=== PATIENT | female | born 2000 | race Caucasian/White ===

== ENCOUNTER 2023-05-25 14:06 | Outpatient (CLI) | payer MEDICAID, SELFPAY | END 2023-05-25 23:59 | LOC: RT 14:08 | PROVIDERS: Visit Provider Physician Assistant | DX: R00.2 Palpitations (principal) | CPT/HCPCS: 93225 ==

== ENCOUNTER 2024-04-16 11:33 | Outpatient (CLI) | payer BC, SELFPAY ==
[2024-04-16 12:20] LABS: Basophils % 0.3 % (0.1-2.0); Eosinophils # 0.1 K/mm3 (0.0-0.4); Eosinophils % 0.7 % (0.1-12.0); Hematocrit 43.3 % (37.0-47.0); Hemoglobin 14.5 g/dL (12.2-16.2); Lymphocytes % 29.1 % (10-50); Mean Corpuscular HGB Conc 33.5 g/dL (31.8-35.4); Mean Corpuscular Volume 92.7 fl (81-99); Mean Platelet Volume 9.6 fl (7.4-10.4); Monocytes # 0.5 K/mm3 (0.1-1.0); Monocytes % 6.5 % (1.7-9.3); Neutrophils # 4.4 K/mm3 (1.8-7.8); Neutrophils % 63.3 % (37.0-80.0); Platelet Count 326 K/mm3 (142-424); Red Blood Count 4.67 M/mm3 (4.20-5.40); Red Cell Distribution Width 12.7 % (11.5-17.5)
[2024-04-16 13:23] LABS: Chloride 104 mmol/L (98-107); Potassium 4.2 mmoL/L (3.5-5.1); Sodium 141 mmol/L (136-145)
[2024-04-16 13:26] LABS: Anion Gap 17.2 mEq/L (5-15); Blood Urea Nitrogen 10 mg/dl (7-17); Carbon Dioxide 24 mmol/L (22.0-30.0); Estimated Glomerular Filt Rate 105 ml/min (>60); GFR (African American) 127 ML/MIN (>60)
[2024-04-16 13:27] LABS: Calcium 9.7 mg/dl (8.4-10.2); Glucose 78 mg/dl (74-100)
[2024-04-16 13:56] LABS: Thyroid Stimulating Hormone < 0.02 uIU/mL (0.465-4.68)
== END 2024-04-16 23:59 | disposition home or self-care (01) ==
LOC: RAD 11:34 → RT 11:35
PROVIDERS: PCP Nurse Practitioner Family; Visit Provider Nurse Practitioner
DX: R00.2 Palpitations (principal); R06.09 Other forms of dyspnea
CPT/HCPCS: 36415; 80048; 84439; 84443; 85025; 93270

== ENCOUNTER 2024-04-25 11:06 | Outpatient (CLI) | payer BC, SELFPAY ==
--- NOTE | 2024-04-25 11:10 | CA_ITS ---
APPROVED REPORT EXAM: Comprehensive 2D, Doppler, and color-flow Echocardiogram Equipment Maintenance Engineer: Adilia Banerjee RVT Ht: 5 ft 2 in Wt: 111lbs BSA: 1.49 BP: 147/96 mmHg Indications: SOA,PALPS,FATIGUE,CP 2D Dimensions LA Volume 20.70 mL LA Volume Index 13.89 mL/m2 (M/F) 16-34 M-Mode Dimensions RVDd 2.25 cm (0.9-2.6) LA Diam 2.33 cm (1.9-4.0) LVDd 4.81 cm (3.5-5.7) LVDs 3.41 cm (3.5-5.7) IVSd 0.31 cm (0.6-1.1) PWd 0.38 cm (0.6-1.1) EF (Teich) 55.70% FS 29.10% EDV (Teich) 108.00 mL TAPSE 2.51 (<1.7) ESV (Teich) 47.80 mL LV Diastology E Decel Time 153 (160-240 msec) E/A Ratio 1.6 Aortic Valve GERMANIA Index 1.58 cm2/m2 AoV Peak Jeff. 146.0 (50-130 cm/s) AO Peak GR. 8.50 mmHg AO Mean GR. 4.40 (<5 mmHg) AO VTI 26.9 (18-25 cm) GERMANIA (VTI) 2.40 (2.5-4.5 cm2) Mitral Valve MV E Max Jeff. 98.0 (40-130 cm/s) MV A Velocity 61.0 (40-130 cm/s) E/A Ratio 1.62 MV PHT 45.0 ms Pulmonary Valve PV Peak Velocity 100.0 (50-150 cm/s) Tricuspid Valve TR P. Velocity 239.00 cm/s RAP Estimate 10.00 mmHg RVSP 32.80 mmHg Left Ventricle The left ventricle is normal size. The left ventricular systolic function is normal. The left ventricular ejection fraction is within the normal range. There is normal left ventricular wall thickness. There is normal LV segmental wall motion. The left ventricular diastolic function is normal. LVEF is 55%. Right Ventricle The right ventricle is normal size. The right ventricular systolic function is normal. Atria The left atrium size is normal. The right atrium size is normal. There is no Doppler evidence of interatrial shunt. Aortic Valve The aortic valve opens well. There is no aortic valvular stenosis. No aortic regurgitation is present. Mitral Valve The mitral valve is normal in structure. No evidence of mitral valve stenosis. There is no mitral valve regurgitation noted. Tricuspid Valve Tricuspid valve is grossly normal in structure and function. Trace tricuspid regurgitation. There is insufficient TR jet to estimate RVSP. Pulmonic Valve The pulmonary valve is normal in structure. Trace pulmonic regurgitation. Great Vessels The aortic root is normal in size. IVC is normal in size and collapses >50% with inspiration. Pericardium There is no pericardial effusion. Other Information Study Quality: Adequate Conclusion Normal biventricular systolic function. No significant valvular stenosis or regurgitation. Electronically signed by : Flory Giraldo MD 05/01/2024 12:00:25
== END 2024-04-25 23:59 | disposition home or self-care (01) ==
LOC: RT 11:07
PROVIDERS: PCP Nurse Practitioner Family; Visit Provider Nurse Practitioner
DX: R06.09 Other forms of dyspnea (principal); R00.2 Palpitations
CPT/HCPCS: 93306